=== PATIENT | female | born 1975 | race Caucasian/White ===

== ENCOUNTER 2024-03-29 17:40 | Emergency (ER) | payer BC, OTHER ==
[2024-03-29] MEDS ORDERED: Cyclobenzaprine 10 MG TAB ONE (18:32)
[2024-03-29] MEDS ORDERED: Ondansetron ODT 4 MG TAB ONE (18:33)
[2024-03-29] MEDS ORDERED: Morphine 4 MG/ML VIAL ONE (18:33)
== END 2024-03-29 18:58 | disposition home or self-care (01) ==
LOC: MADERS 17:40
DX: S39.012A Strain of muscle, fascia and tendon of lower back, initial encounter (principal); S29.012A Strain of muscle and tendon of back wall of thorax, initial encounter; F17.210 Nicotine dependence, cigarettes, uncomplicated; X58.XXXA Exposure to other specified factors, initial encounter
CPT/HCPCS: 96372; 99283; J2270; Q0162

== ENCOUNTER 2024-04-25 14:58 | Emergency (ER) | payer BC ==
[2024-04-25] MEDS ORDERED: Ondansetron ODT 4 MG TAB ONE (15:52)
[2024-04-25] MEDS ORDERED: HYDROmorphone 0.5 MG/0.5 ML SYRINGE ONE (15:53)
== END 2024-04-25 17:09 | disposition home or self-care (01) ==
LOC: MADERS 14:58
DX: G89.29 Other chronic pain (principal); M54.50 Low back pain, unspecified; F17.210 Nicotine dependence, cigarettes, uncomplicated
CPT/HCPCS: 72100; 72170; 96372; J1170; Q0162